=== PATIENT | female | born 1985 | race Caucasian/White ===

== ENCOUNTER 2023-08-25 06:07 | Day surgery (SDC) | payer BC, SELFPAY ==
[2023-08-22 10:47] LABS: % Basophils 0.6 % (0-2); % Eosinophils 1.5 % (0-6); % Immature Granulocytes 0.2 % (0-0.5); % Lymphocytes 23.4 % (20.5-51.1); % Monocytes 6.5 % (1.7-9.3); % Neutrophils 67.8 % (42.2-75.2); Absolute Eosinophils 0.1 10^3/uL (0-0.7); Absolute Lymphocytes 1.5 10^3/uL (1.2-3.4); Absolute Monocytes 0.4 10^3/uL (0.1-0.6); Absolute Neutrophils 4.5 10^3/uL (1.4-6.5); Hematocrit 39.2 % (37.0-47.0); Mean Corp Hgb Conc. 33.2 g/dL (33.0-37.0); Mean Corpuscular Hgb 27.8 pg (27.0-31.0); Mean Corpuscular Volume 83.8 fL (81.0-99.0); Mean Platelet Volume 9.4 fL (7.4-10.4); Nucleated Red Blood Cells % 0 %; Platelet Count 282 10^3/uL (130-400); Red Blood Cell Count 4.68 10^6/uL (4.20-5.40); Red Cell Dist. Width 12.7 % (11.5-14.5); White Blood Cell Count 6.6 10^3/uL (4.8-10.8)
[2023-08-22 11:12] LABS: Blood Urea Nitrogen 16 mg/dl (7-17); Calcium 9.5 mg/dl (8.4-10.2); Carbon Dioxide 27 mmol/L (22-30); Chloride 101 mmol/L (98-107); Glucose 82 mg/dl (70-99); Potassium 4.4 mmol/L (3.5-5.1); Sodium 133 mmol/L (135-145); eGFR > 60.00
[2023-08-22 11:27] LABS: Beta HCG Quantitative < 2.39 mIU/ml
[2023-08-22 13:15] VITALS: BMI 20.2
[2023-08-25] VITALS (12 sets, daily range): BP systolic 103–135; BP diastolic 60–76; BMI 20.2
[2023-08-25] MEDS: NORMOSOL-R 1000 IV (07:10)
[2023-08-25] MEDS: TYLENOL 1000 MG PO (07:18)
--- NOTE | 2023-08-25 11:48 | W.IMMPOSTOP ---
Surgical Immed Post Op Note
-
Primary Surgeon: Jodie Curry DO
Shipping Supervisor: GASPER Taylor
Pre-op Diagnosis: Large left adnexal cyst/endometrioma; Right ovarian cysts, Fibroid uterus, severe dysmenorrhea
Post-op Diagnosis: same; bilateral endometriomas, pedunculated posterior fundal fibroid.
Procedure Performed: Robotic laparoscopic bilateral ovarian cystectomies, lysis adhesions, myomectomy
Anesthesia Type: general Dr. Singh
Antibiotics: Ancef 2 gram
Intraop Consult: Colorectal surgeon, Dr. Graff to run and inspect the bowel for possible injury due to possible hyperemic area on small bowel versus blood dripping from port after entry with first trocar. No evidence of bowel perforation.
Specimen / Cultures: 1. left ovarian endometriosis cyst wall 2. right ovarian cyst wall (endometrioma) 3. fibroid
Estimated Blood Loss: 10ml
Urine output: 500ml clear yellow
Complications: none
Operative Findings: Uterus with 6 cm pedunculated fibroid emanating from posterior fundal region with attachment point approx 3cm width. Incision for myomectomy was very superficial and no entry into deeper myometrium or endometrial cavity. Large
left ovarian endometrioma approx 9 cm with some filmy adhesions but otherwise easily mobile. Right ovary with 2cm and 1 cm endometriomas. No other endometriosis implants noted in pelvis. Few filmy adhesions involving distal right fallopian tube and
ovary to peritoneum in cul de sac. Cul de sac clear of lesions. Epiploica of bowel attached to fibroid with filmy adhesions. Normal appearing appendix.
Counts correct times 2.
Incisions: Four 8mm incisions and one 5-mm incision for ports. Small minilap incision approx 4 cm for removal of fibroid.
All instrument, sponge and needle counts correct times 2.
Stable to recovery.
[2023-08-25] MEDS: DILAUDID 0.5 MG IV (12:18)
[2023-08-25] MEDS: DILAUDID 0.25 MG IV (12:43)
[2023-08-25] MEDS: ZOFRAN 4 MG IV (13:30)
[2023-08-25] MEDS: TYLENOL 650 MG PO (15:35)
== END 2023-08-25 15:50 | disposition home or self-care (01) ==
LOC: SDS 06:07
PROVIDERS: ATTENDING PHYSICIAN Obstetrics & Gynecology; FAMILY PHYSICIAN Nurse Practitioner
DX: D25.9 Leiomyoma of uterus, unspecified (principal); N80.123 Deep endometriosis of bilateral ovaries; N83.201 Unspecified ovarian cyst, right side; N83.202 Unspecified ovarian cyst, left side; N94.6 Dysmenorrhea, unspecified
CPT/HCPCS: 58662; 58561; 88304; 88305; 36415; 80048; 84702; 85025; 86850; 86900; 86901

== ENCOUNTER → 2024-07-18 10:13 | Outpatient (REF) | payer BC, SELFPAY | LOC: WDC 10:13 | PROVIDERS: ATTENDING PHYSICIAN Obstetrics & Gynecology; FAMILY PHYSICIAN Nurse Practitioner | DX: N63.20 Unspecified lump in the left breast, unspecified quadrant (principal); N63.24 Unspecified lump in the left breast, lower inner quadrant | CPT/HCPCS: 76642; 77063; 77067 ==

== ENCOUNTER 2024-07-26 06:49 | Day surgery (SDC) | payer BC, SELFPAY ==
[2024-07-22 11:28] LABS: % Basophils 0.5 % (0-2); % Eosinophils 2.5 % (0-6); % Immature Granulocytes 0.2 % (0-0.5); % Lymphocytes 26.7 % (20.5-51.1); % Monocytes 7.6 % (1.7-9.3); % Neutrophils 62.5 % (42.2-75.2); Absolute Eosinophils 0.2 10^3/uL (0-0.7); Absolute Lymphocytes 1.6 10^3/uL (1.2-3.4); Absolute Monocytes 0.5 10^3/uL (0.1-0.6); Absolute Neutrophils 3.8 10^3/uL (1.4-6.5); Hematocrit 42.1 % (37.0-47.0); Hemoglobin 13.9 g/dL (12.0-16.0); Mean Corpuscular Hgb 28.1 pg (27.0-31.0); Mean Corpuscular Volume 85.2 fL (81.0-99.0); Mean Platelet Volume 9.9 fL (7.4-10.4); Nucleated Red Blood Cells % 0 %; Platelet Count 251 10^3/uL (130-400); Red Blood Cell Count 4.94 10^6/uL (4.20-5.40); Red Cell Dist. Width 12.6 % (11.5-14.5); White Blood Cell Count 6.1 10^3/uL (4.8-10.8)
[2024-07-22 12:08] LABS: Blood Urea Nitrogen 21 mg/dl (7-17); Calcium 9.6 mg/dl (8.4-10.2); Carbon Dioxide 29 mmol/L (22-30); Chloride 97 mmol/L (98-107); Glucose 74 mg/dl (70-99); Potassium 4.4 mmol/L (3.5-5.1); Sodium 136 mmol/L (135-145); eGFR > 60.00
[2024-07-22 12:24] LABS: Beta HCG Quantitative < 2.39 mIU/ml
[2024-07-22 13:41] VITALS: BMI 20.3
[2024-07-26] VITALS (12 sets, daily range): BP systolic 105–131; BP diastolic 60–74; BMI 20.3
[2024-07-26] MEDS: TYLENOL 1000 MG PO (09:55)
[2024-07-26] MEDS: NEURONTIN 100 MG PO (09:55)
[2024-07-26] MEDS: NORMOSOL-R/PLASMALYTE-A 1000 IV (10:01)
[2024-07-26] MEDS: DILAUDID 0.5 MG IV (13:49)
--- NOTE | 2024-07-26 13:56 | W.IMMPOSTOP ---
Surgical Immed Post Op Note
-
Primary Surgeon: Jodie Curry DO
Division Controller: GASPER Fraga
Pre-op Diagnosis: Bilateral hydrosalpinx, primary infertility, right ovarian cyst/likely endometrioma
Post-op Diagnosis: same; bilateral endometriosis cysts, pelvic adhesions, pelvic and extrapelvic endometriosis
Procedure Performed: Robotic laparoscopic bilateral salpingectomy, lysis of adhesions, excision of endometriosis implants off sigmoid serosal surface (superficial),
drainage bilateral endometriomas, right ovarian cystectomy, fulgeration of pelvic peritoneal endometriosis
Anesthesia Type: general ET Dr. Baca
Specimen / Cultures: 1. bilateral fallopian tubes/hydrosalpinx 2. sigmoid serosal endometriosis implants (2 superficial) 3. right ovarian endometriosis cyst/cyst wall
Estimated Blood Loss: 5ml
Urine output: 600ml clear yellow
Complications: none
Operative Findings: Uterus normal size and shape. Right ovary with endometrioma approx 3cm (chocolate cyst) and smaller 1.5cm chocolate cyst (excised), Left ovary with 2cm chocolate cyst. Filmy adhesions bilateral ovaries to pelvic peritoneum and
posterior uterus. Ovaries 'kissing' . Bilateral hydrosalpinx with filmy adhesions to ipsilateral ovary. Superficial endometriosis implants on pelvic peritoneal surface of left broad ligament (2 lesions approx 3 mm superficial jones-brown) inferior to
left round ligament. Superficial endometriosis implants approx 3mm brown-avitia in color overlying sigmoid serosa (very loosely attached and removed with gently lifting). 2-3 small 3mm superficial hemosiderin colored implants on peritoneal surface
near liver.
Counts correct times 2.
Stable to recovery.
[2024-07-26] MEDS: TORADOL 15 MG IV (14:14)
--- NOTE | 2024-07-26 17:12 | PTCARENOTE ---
Pt c/o pain in right eye after awakening from taking a nap while in [employer]. Pt states the pain was sharp initially then became dull and it radiates from the right eye to her jawline. Dr Fatima notified & came to assess pt to r/o corneal abrasion.
spoke with pt & her about possible causes for this pain (unlikely abrasion). No further action needed. Pt ok for discharge.
== END 2024-07-26 17:28 | disposition home or self-care (01) ==
LOC: SDS 06:49
PROVIDERS: ATTENDING PHYSICIAN Obstetrics & Gynecology; FAMILY PHYSICIAN Nurse Practitioner
DX: N70.11 Chronic salpingitis (principal); N80.101 Endometriosis of right ovary, unspecified depth; N97.9 Female infertility, unspecified; N80.30 Endometriosis of pelvic peritoneum, unspecified; N83.201 Unspecified ovarian cyst, right side; N73.6 Female pelvic peritoneal adhesions (postinfective); N80.121 Deep endometriosis of right ovary
CPT/HCPCS: 58662; 58661; 88305; 36415; 80048; 84702; 85025; 86850; 86900; 86901

== ENCOUNTER → 2024-09-02 14:39 | Outpatient (REF) | payer BC, SELFPAY | LOC: PAVMRI 14:39 | PROVIDERS: ATTENDING PHYSICIAN Nurse Practitioner | DX: M71.38 Other bursal cyst, other site (principal) | CPT/HCPCS: 72146 ==